=== PATIENT | female | born 1930 | race Caucasian/White ===

== ENCOUNTER 2017-01-31 16:35 | Inpatient (IN) | payer MEDICARE, MEDICAID ==
[~2017-01-31] VITALS: Ht 165.1 cm; Wt 94.2 kg
[~2017-01-31 16:35] MED LIST: AMLO10TA2 PO; ASPI-515 PO; ATOR40TA78 PO; DOCU100C8 PO; LISI-170 PO; METO25TA35 PO; ONDA4TAB7 PO; POLY17PO5 PO; TRAM50TA2 PO
[2017-01-31] MEDS ORDERED: ONDANSETRON 2MG/ML, 2ML ONE (16:47)
[2017-01-31] MEDS ORDERED: ONDANSETRON 2MG/ML, 2ML IVPush ONE (17:00)
[2017-01-31] MEDS ORDERED: NALOXONE 0.4 MG/ML, 1ML IVPush ONE (17:00)
[2017-01-31] MEDS ORDERED: SODIUM CHLORIDE FLUSH 10ML SYR IVF ONE (17:00)
[2017-01-31 17:23] LABS: ASPARTATE AMINO TRANSFERASE 26 U/L (15-37); BLOOD UREA NITROGEN 19 mg/dL (7-18)
[2017-01-31 17:28] LABS: IS PT STATUS REG ER OR PRE ER? YES
[2017-01-31 17:33] LABS: DAU SCREEN DISCLAIMER
[2017-01-31] MEDS ORDERED: POTASSIUM CHLORIDE 20 MEQ TAB.ER.PRT PO ONE (18:00)
[2017-01-31] MEDS ORDERED: SODIUM CHLORIDE 0.9% 1,000ML IVBOLUS ONE (18:00)
[2017-01-31] MEDS ORDERED: POTASSIUM CHLORIDE 20 MEQ in SODIUM CHLORIDE 0.9% 250 ML IV ONE (19:00)
[2017-01-31] MEDS ORDERED: PIPERACILLIN/TAZO/PMX 3.375GM 50 ML IV ONE (19:00)
[2017-01-31] MEDS ORDERED: PIPERACILLIN/TAZO/PMX 3.375GM 50 ML ONE (19:04)
[2017-01-31] MEDS ORDERED: ACET325T14 PO (19:28)
[2017-01-31] MEDS ORDERED: GABA100C PO (19:28)
[2017-01-31] MEDS ORDERED: ENALAPRILAT 1.25 MG/ML, 2ML IV PRN (20:30)
[2017-01-31] MEDS ORDERED: ONDANSETRON 2MG/ML, 2ML IVP PRN (20:30)
[2017-01-31] MEDS ORDERED: BISACODYL 10 MG SUPP PR PRN (20:30)
[2017-01-31] MEDS: CEFTRIAXONE PMX 1GM/50ML 50 ML IV SCH (23:33)
[2017-01-31] MEDS: HEPARIN 5,000 UNITS/ML, 1ML SQ SCH (23:33)
[2017-01-31] MEDS: POTASSIUM CHLORIDE 20 MEQ in SODIUM CHLORIDE 0.45% 1,000 ML IV SCH (23:33)
[2017-02-01 02:02] VITALS: BP 124/67
[2017-02-01] MEDS: HEPARIN 5,000 UNITS/ML, 1ML SQ SCH ×3 (05:18→21:40)
[2017-02-01 05:37] LABS: ASPARTATE AMINO TRANSFERASE 25 U/L (15-37); BLOOD UREA NITROGEN 16 mg/dL (7-18)
[2017-02-01 09:28] VITALS: BP 148/85
[2017-02-01] MEDS: POTASSIUM CHLORIDE 20 MEQ in SODIUM CHLORIDE 0.45% 1,000 ML IV SCH (10:27)
[2017-02-01] MEDS ORDERED: SODIUM CHLORIDE NASAL SPRAY 45ML BOTTLE NAS PRN (10:30)
[2017-02-01 17:14] VITALS: BP 162/78
[2017-02-01 20:02] VITALS: BP 167/79
[2017-02-01] MEDS: ATORVASTATIN 40 MG TABLET PO SCH (21:40)
[2017-02-01 21:41] VITALS: BP 149/67
[2017-02-01] MEDS: CEFTRIAXONE PMX 1GM/50ML 50 ML IV SCH (23:59)
[2017-02-02 01:58] VITALS: BP 144/84
[2017-02-02] MEDS: POTASSIUM CHLORIDE 20 MEQ in SODIUM CHLORIDE 0.45% 1,000 ML IV SCH ×2 (03:50→12:58)
[2017-02-02] MEDS: HEPARIN 5,000 UNITS/ML, 1ML SQ SCH ×3 (05:00→20:54)
[2017-02-02 05:42] LABS: BLOOD UREA NITROGEN 9 mg/dL (7-18)
[2017-02-02] MEDS ORDERED: PNEUMOCOCCAL VACC.PER PHARMACY IM ONE (08:30)
[2017-02-02 08:40] VITALS: BP 140/87
[2017-02-02] MEDS: ASPIRIN 81 MG TABLET CHEW PO SCH (10:08)
[2017-02-02 13:13] VITALS: BP 149/63
[2017-02-02] MEDS ORDERED: AMLODIPINE 5 MG TABLET PO SCH (13:30)
[2017-02-02 18:21] VITALS: BP 160/90
[2017-02-02] MEDS: METOPROLOL TARTRATE 25 MG TABLET PO SCH (18:25)
[2017-02-02 20:00] VITALS: BP 152/83
[2017-02-02] MEDS: ATORVASTATIN 40 MG TABLET PO SCH (20:54)
[2017-02-02] MEDS: CEFTRIAXONE PMX 1GM/50ML 50 ML IV SCH (22:53)
[2017-02-03 02:00] VITALS: BP 148/87
[2017-02-03 04:56] LABS: BLOOD UREA NITROGEN 8 mg/dL (7-18)
[2017-02-03] MEDS: HEPARIN 5,000 UNITS/ML, 1ML SQ SCH ×3 (05:58→22:11)
[2017-02-03] MEDS: METOPROLOL TARTRATE 25 MG TABLET PO SCH ×2 (05:58→17:22)
[2017-02-03 07:19] VITALS: BP 145/93
[2017-02-03] MEDS: ASPIRIN 81 MG TABLET CHEW PO SCH (08:32)
[2017-02-03] MEDS: AMLODIPINE 5 MG TABLET PO SCH (08:32)
[2017-02-03] MEDS: POTASSIUM CHLORIDE 20 MEQ TAB.ER.PRT PO SCH ×2 (08:32→17:22)
[2017-02-03 13:15] VITALS: BP 147/83
[2017-02-03] MEDS ORDERED: METO25TA35 PO (14:59)
[2017-02-03] MEDS ORDERED: CEFD300C37 PO (14:59)
[2017-02-03 20:00] VITALS: BP 147/79
[2017-02-03] MEDS: ATORVASTATIN 40 MG TABLET PO SCH (22:11)
[2017-02-03] MEDS: CEFTRIAXONE PMX 1GM/50ML 50 ML IV SCH (23:24)
[2017-02-04 02:00] VITALS: BP 158/94
[2017-02-04] MEDS: HEPARIN 5,000 UNITS/ML, 1ML SQ SCH ×2 (05:44→14:00)
[2017-02-04] MEDS: METOPROLOL TARTRATE 25 MG TABLET PO SCH (05:45)
[2017-02-04 06:17] LABS: BLOOD UREA NITROGEN 11 mg/dL (7-18)
[2017-02-04 06:49] VITALS: BP 140/87
[2017-02-04] MEDS: ASPIRIN 81 MG TABLET CHEW PO SCH (09:08)
[2017-02-04] MEDS: AMLODIPINE 5 MG TABLET PO SCH (09:09)
== END 2017-02-04 15:09 | DRG 689 ==
LOC: ED 18:16 → EDIP 19:23 → 4WST 22:23
PROVIDERS: ADMIT Internal Medicine; ATTEND Internal Medicine
PROC: 0T9B70Z Drainage of Bladder with Drainage Device, Via Natural or Artificial Opening (ICD-10-PCS; principal; 2017-01-31)
DX: N30.00 Acute cystitis without hematuria (principal); G93.40 Encephalopathy, unspecified; D68.69 Other thrombophilia; E87.4 Mixed disorder of acid-base balance; J96.10 Chronic respiratory failure, unspecified whether with hypoxia or hypercapnia; E78.5 Hyperlipidemia, unspecified; E87.6 Hypokalemia; B96.20 Unspecified Escherichia coli [E. coli] as the cause of diseases classified elsewhere; E66.9 Obesity, unspecified; F03.90 Unspecified dementia, unspecified severity, without behavioral disturbance, psychotic disturbance, mood disturbance, and anxiety; I10 Essential (primary) hypertension; I48.0 Paroxysmal atrial fibrillation; M19.90 Unspecified osteoarthritis, unspecified site; Z66 Do not resuscitate; I25.2 Old myocardial infarction; Z68.34 Body mass index [BMI] 34.0-34.9, adult; Z87.440 Personal history of urinary (tract) infections; I69.392 Facial weakness following cerebral infarction; Z88.5 Allergy status to narcotic agent
CPT/HCPCS: 36415; 70450; 70551; 71010; 74230; 80048; 80053; 80307; 81001; 82140; 83605; 83735; 84439; 84443; 84484; 85025; 85610; 85730; 87040; 87077; 87086; 87186; 93005; 96361; 96365; 96366; 96368; 96375; J0696; J1644; J2310; J2405; J2543; J3480; J7030; J7050